=== PATIENT | male | born 1980 | race Caucasian/White ===

== ENCOUNTER 2017-05-03 02:40 | Emergency (ER) | payer OTHER, BC ==
[2017-05-03] MEDS ORDERED: PROPARACAINE 0.5% OPHTH DROPS 15 ML BTL LEFT EYE STA (02:54)
[2017-05-03 02:55] VITALS: BP 133/76; PULSE 65; RESP 18; TEMP 97
--- NOTE | 2017-05-03 03:07 | ED ---
General Adult HPI - General Chief complaint: Eye Problems Stated complaint: EYE INJURY Source: patient, RN notes reviewed Mode of arrival: ambulatory Limitations: no limitations - History of Present Illness Initial comments: This is a 36-year-old male who presents to the emergency department with chief complaint of left eye pain. Patient states that he was at work this afternoon and at approximately 3 PM a pipe broke and came back and hit him in the face. He states that since that time he has had pain in the left eye. He states that it has also felt itchy, has had a foreign body sensation and is blurry. He states that he is worried that he may have a piece of metal in his eye. Patient states that he is up-to-date with his tetanus vaccination at least within the last 5 years. Denies fever, chills, chest pain, shortness of breath, abdominal pain, nausea or vomiting, constipation or diarrhea, dysuria or hematuria, numbness or tingling. - Related Data Home Medications Medication Instructions Recorded Confirmed No Known Home Medications [No 05/03/17 05/03/17 Known Home Medications] Allergies Allergy/AdvReac Type Severity Reaction Status Date / Time No Known Allergies Allergy Verified 05/03/17 02:52 Review of Systems ROS Statement: Those systems with pertinent positive or pertinent negative responses have been documented in the HPI. ROS Other: All systems not noted in ROS Statement are negative. Past Medical History Past Medical History: No Reported History History of Any Multi-Drug Resistant Organisms: None Reported Past Surgical History: No Surgical Hx Reported Past Psychological History: No Psychological Hx Reported Smoking Status: Former smoker Past Alcohol Use History: Occasional Past Drug Use History: Marijuana General Exam - General Exam Comments Initial Comments: General: Awake and alert, well-developed; in no apparent distress. HEENT: Head atraumatic, normocephalic. Pupils are equal, round and reactive to light. Extraocular movements intact. On fluorescein staining, a corneal abrasion is apparent overlying the pupil of the left eye. Small foreign body noted at 7 o'clock in relation to pupil. Oropharynx moist without erythema or exudate. Neck: Supple. Normal ROM. Cardiovascular: Regular rate and rhythm. No murmurs, rubs or gallops. Chest symmetrical. Respiratory: Lungs clear to auscultation bilaterally. No wheezes, rales or rhonchi. Normal respiratory effort with no use of accessory muscles. Musculoskeletal: Normal ROM, no tenderness bilateral upper and lower extremities. Ambulating normally. Skin: [place], warm and dry without rashes or lesions. Neurological: Alert and oriented x3. CN II-XII grossly intact. Speech is fluent and answers are appropriate. No focal neuro deficits. Psychiatric: Normal mood and affect. No overt signs of depression or anxiety noted. Limitations: no limitations Course Vital Signs 05/03/17 02:49 Temperature 97 F L Pulse Rate 65 Respiratory 18 Rate Blood Pressure 133/76 O2 Sat by Pulse 99 Oximetry Medical Decision Making - Medical Decision Making This is a 36-year-old male who presents to the emergency department with chief complaint of left eye pain. In fluorescein staining a corneal abrasion was identified. I discussed this with Dr. Romero, who then evaluated the patient. He was able to identify a small piece of metal at approximately 7:00 in relation to the pupil. He was able to remove the piece of metal. Patient was left with a rust ring that was not removed because the tool was unclean.patient will be discharged home with recommendation to follow-up with ophthalmology today or tomorrow. He was provided with prescription for tobramycin drops. Patient is in agreement with plan and voices understanding. All questions were answered. Disposition Clinical Impression: Corneal foreign body, Corneal abrasion, Corneal rust ring of left eye Disposition: HOME SELF-CARE Condition: Good Instructions: Eye Foreign Body (ED), Corneal Abrasion (ED), Tobramycin (Into the eye) Additional Instructions: Please follow up with Dr. Rodas, ophthalmology today or tomorrow. Please take medications as prescribed. Please follow up with primary care provider within 1- 2 days. Return to emergency department if symptoms should worsen or any concerns arise. Referrals: None,Stated [Primary Care Provider] - 1-2 days Armani Rodas MD [STAFF PHYSICIAN] - 1-2 days Time of Disposition: 03:39
[2017-05-03] MEDS ORDERED: TOBRAMYCIN 0.3% OPHTH DROPS 5 ML BTL LEFT EYE STA (03:38)
== END 2017-05-03 03:45 | disposition home or self-care (01) ==
LOC: EC 02:40
DX: T15.02XA Foreign body in cornea, left eye, initial encounter (principal); Z87.891 Personal history of nicotine dependence; W22.8XXA Striking against or struck by other objects, initial encounter; Y93.89 Activity, other specified; Y99.0 Civilian activity done for income or pay; Y92.69 Other specified industrial and construction area as the place of occurrence of the external cause
CPT/HCPCS: 99283

== ENCOUNTER 2020-12-20 19:29 | Emergency (ER) | payer BC ==
[2020-12-20 19:48] VITALS: RESP 18
[2020-12-20 20:16] LABS: Basophils % (A) 1 %; Eosinophils # (A) 0.5 k/uL (0-0.7); Eosinophils % (A) 5 %; HCT 41.9 % (39.0-53.0); HGB 14.5 gm/dL (13.0-17.5); Lymphocytes % (A) 22 %; MCH 31.1 pg (25.0-35.0); MCHC 34.5 g/dL (31.0-37.0); MCV 90.1 fL (80.0-100.0); Monocytes # (A) 0.6 k/uL (0-1.0); Monocytes % (A) 6 %; Neutrophils # (A) 5.9 k/uL (1.3-7.7); Neutrophils % (A) 64 %; Platelet Count 263 k/uL (150-450); RBC 4.66 m/uL (4.30-5.90); RDW 13.6 % (11.5-15.5); WBC 9.1 k/uL (3.8-10.6)
[2020-12-20 20:25] LABS: ALT 27 U/L (4-49); AST 33 U/L (17-59); African American GFR (CKD) >90 (>60 ml/min/1.73 sqM); Albumin 4.5 g/dL (3.5-5.0); Alkaline Phosphatase 120 U/L (38-126); Anion Gap 9 mmol/L; Blood Urea Nitrogen 12 mg/dL (9-20); Calcium 9.3 mg/dL (8.4-10.2); Carbon Dioxide 26 mmol/L (22-30); Chloride 103 mmol/L (98-107); Glucose 98 mg/dL (74-99); Non-African American GFR(CKD) >90 (>60 ml/min/1.73 sqM); Potassium 3.8 mmol/L (3.5-5.1); Sodium 138 mmol/L (137-145); Total Bilirubin 0.6 mg/dL (0.2-1.3); Total Protein 6.8 g/dL (6.3-8.2)
[2020-12-20 20:30] LABS: Prothrombin Time 10.6 sec (9.0-12.0)
--- NOTE | 2020-12-20 20:59 | ED ---
Chest Pain HPI - General Chief Complaint: Chest Pain Stated Complaint: Chest Pain,L Arm numbnss Time Seen by Provider: 12/20/20 20:27 Source: patient Mode of arrival: wheelchair - History of Present Illness Initial Comments: 40-year-old male with no past medical history presents emergency room with reported chest pain. Patient states he has had left-sided chest pain which radi ates into his left arm. He has had several episodes over the past 5 years. He did follow up in 2016 and had a stress test performed which was negative. He has not followed with a primary care doctor or project associate since. States that over the past several months he has had increasing episodes of chest pain with shortness of breath. He had 2 episodes today while at work treat him concerned and came into the emergency room for evaluation. His symptoms started around 3 PM with the worse episode happening at 6 PM. He denies family history of sudden cardiac . No fevers, chills or cough. Denies any abdominal pain. No numbness, tingling or weakness in his extremities. No other alleviating, weight loss consultant modifying factors - Related Data Home Medications Medication Instructions Recorded Confirmed No Known Home Medications 05/03/17 12/20/20 Allergies Allergy/AdvReac Type Severity Reaction Status Date / Time No Known Allergies Allergy Verified 12/20/20 21:17 Review of Systems ROS Statement: Those systems with pertinent positive or pertinent negative responses have been documented in the HPI. ROS Other: All systems not noted in ROS Statement are negative. EKG Findings - EKG Comments: EKG Findings:: EKG demonstrates a sinus tachycardia with a ventricular rate of 57. IL interval 158. QRS 94. QTC of 395. No acute ST segment elevations. Inverted T-wave in lead 3. Past Medical History Past Medical History: No Reported History History of Any Multi-Drug Resistant Organisms: None Reported Past Surgical History: No Surgical Hx Reported Past Psychological History: No Psychological Hx Reported Smoking Status: Former smoker Past Alcohol Use History: Occasional Past Drug Use History: Marijuana General Exam General appearance: alert, in no apparent distress Head exam: Present: atraumatic, normocephalic, normal inspection Eye exam: Present: normal appearance, PERRL, EOMI. Absent: scleral icterus, conjunctival injection, periorbital swelling ENT exam: Present: normal exam, mucous membranes moist Neck exam: Present: normal inspection. Absent: tenderness, meningismus, lymphadenopathy Respiratory exam: Present: normal lung sounds bilaterally. Absent: respiratory distress, wheezes, rales, rhonchi, stridor Cardiovascular Exam: Present: regular rate, normal rhythm, normal heart sounds. Absent: systolic murmur, diastolic murmur, rubs, gallop, clicks GI/Abdominal exam: Present: soft, normal bowel sounds. Absent: distended, tenderness, guarding, rebound, rigid Extremities exam: Present: normal inspection, full ROM, normal capillary refill. Absent: tenderness, pedal edema, joint swelling, calf tenderness Back exam: Present: normal inspection Neurological exam: Present: alert, oriented X3, CN II-XII intact Psychiatric exam: Present: normal affect, normal mood Skin exam: Present: warm, dry, intact, normal color. Absent: rash Course Vital Signs 12/20/20 12/20/20 19:43 22:26 Temperature 98.1 F 97.7 F Pulse Rate 80 68 Respiratory 18 18 Rate Blood Pressure 143/100 145/98 O2 Sat by Pulse 98 98 Oximetry Chest Pain MDM - MDM Upon arrival patient was placed into room 4. A thorough history and physical e xam was performed. Laboratory studies are conducted and chest x-rays performed. Upon return of the results they're discuss the patient. Due to the duration of the patient's symptoms the past 5 years will be discharged home to follow up with primary care doctor in office. I did recommend for cardiac workup to include echo, Holter monitoring chest testing. Patient understood this. He has any new or worsening symptoms return to the emergency room. Patient was discharged home in stable condition Disposition Clinical Impression: Chest pain Disposition: HOME SELF-CARE Condition: Stable Instructions (If sedation given, give patient instructions): Chest Pain (ED) Additional Instructions: You need to follow up with your PCP in 2-4 days and have a full cardiac workup. Return to the ED for any new or worsening symptoms. Is patient prescribed a controlled substance at d/c from ED?: No Referrals: Nataly Chan DO [REFERRING] - 1-2 days Shelia Blount MD [REFERRING] - 1-2 days Oeby Herron MD [STAFF PHYSICIAN] - 1-2 days Time of Disposition: 22:06
--- NOTE | 2020-12-20 21:20 | XR ---
EXAMINATION TYPE: XR chest 2V DATE OF EXAM: 12/20/2020 COMPARISON: Chest radiograph 10/15/2015 HISTORY: Chest pain TECHNIQUE: Frontal and lateral views of the chest are obtained. FINDINGS: There is no focal air space opacity, pleural effusion, or pneumothorax seen. The cardiac silhouette size is within normal limits. The osseous structures are intact. IMPRESSION: No acute cardiopulmonary process.
[2020-12-20 22:28] VITALS: BP 145/98; PULSE 68; TEMP 97.7
== END 2020-12-20 22:26 | disposition home or self-care (01) ==
LOC: EC 19:29
DX: R07.89 Other chest pain (principal); F12.90 Cannabis use, unspecified, uncomplicated; Z87.891 Personal history of nicotine dependence
CPT/HCPCS: 36415; 71046; 80053; 84484; 85025; 85379; 85610; 85730; 93005; 99285

== ENCOUNTER 2021-12-12 12:53 | Emergency (ER) | payer BC ==
--- NOTE | 2021-12-12 13:21 | ED ---
Lower Extremity Injury HPI - General Stated Complaint: ankle injury Time Seen by Provider: 12/12/21 13:19 Source: patient, RN notes reviewed Mode of arrival: ambulatory Limitations: no limitations - History of Present Illness Initial Comments: This a 41-year-old male presents emergency Department chief complaint of left ankle pain. Patient states proximal 9 minutes prior arrival he rolled his ankle and stepped in hole. Patient states she has pain on lateral portion a prior ankle fracture no prior surgeries. No paresthesias no other injuries noted. - Related Data Previous Rx's Medication Instructions Recorded Ibuprofen [Motrin] 600 mg PO Q8HR PRN #20 tab 12/12/21 Allergies Allergy/AdvReac Type Severity Reaction Status Date / Time No Known Allergies Allergy Verified 12/12/21 13:21 Review of Systems ROS Statement: Those systems with pertinent positive or pertinent negative responses have been documented in the HPI. ROS Other: All systems not noted in ROS Statement are negative. Past Medical History Past Medical History: No Reported History History of Any Multi-Drug Resistant Organisms: None Reported Past Surgical History: No Surgical Hx Reported Past Psychological History: No Psychological Hx Reported Smoking Status: Former smoker Past Alcohol Use History: Occasional Past Drug Use History: Marijuana General Exam General appearance: alert, in no apparent distress Head exam: Present: atraumatic, normocephalic, normal inspection Eye exam: Present: normal appearance, PERRL, EOMI. Absent: scleral icterus, conjunctival injection, periorbital swelling Respiratory exam: Present: normal lung sounds bilaterally. Absent: respiratory distress, wheezes, rales, rhonchi, stridor Cardiovascular Exam: Present: regular rate, normal rhythm, normal heart sounds. Absent: systolic murmur, diastolic murmur, rubs, gallop, clicks Extremities exam: Present: other (Left ankle there is moderate swelling on lateral malar region, tenderness with palpation is no foot tenderness no proximal tib-fib tenderness pulses equal bilateral equal color equal warmth) Skin exam: Present: warm, dry, intact, normal color. Absent: rash Course Vital Signs 12/12/21 13:18 Temperature 98.1 F Pulse Rate 64 Respiratory 18 Rate Blood Pressure 118/75 O2 Sat by Pulse 100 Oximetry Medical Decision Making - Medical Decision Making X-ray is negative for acute fracture. Patient left ankle sprain will be put in a stirrup air cast on-call with orthopedics Disposition Clinical Impression: Left ankle sprain Disposition: HOME SELF-CARE Condition: Stable Instructions (If sedation given, give patient instructions): Ankle Sprain (ED) Additional Instructions: Please return to the Emergency Department if symptoms worsen or any other concerns. Prescriptions: Ibuprofen [Motrin] 600 mg PO Q8HR PRN #20 tab PRN Reason: Pain Is patient prescribed a controlled substance at d/c from ED?: No Referrals: None,Stated [Primary Care Provider] - 1-2 days Jimi Valera MD [Medical Doctor] - 1-2 days Time of Disposition: 13:58
[2021-12-12] MEDS ORDERED: ACET/COD 300 MG/30 MG STARTER PACK 6 TAB BTL PO STA (13:57)
--- NOTE | 2021-12-12 13:59 | XR ---
EXAMINATION TYPE: XR ankle complete LT DATE OF EXAM: 12/12/2021 CLINICAL HISTORY: Pain and swelling after injury. TECHNIQUE: Frontal, lateral and oblique images of the left ankle are obtained. COMPARISON: None. FINDINGS: Moderate soft tissue swelling over the lateral malleolus. There is no acute fracture/dislo cation evident in the left ankle. The ankle mortise appears within normal limits. IMPRESSION: There is no acute fracture or dislocation in the left ankle.
[2021-12-12 14:34] VITALS: BP 123/76; PULSE 62; RESP 16; TEMP 98.2
== END 2021-12-12 14:30 | disposition home or self-care (01) ==
LOC: EC 12:53
DX: S93.402A Sprain of unspecified ligament of left ankle, initial encounter (principal); Z87.891 Personal history of nicotine dependence; W18.42XA Slipping, tripping and stumbling without falling due to stepping into hole or opening, initial encounter
CPT/HCPCS: 73610; 99283; L4350

== ENCOUNTER → 2022-10-23 | Outpatient (CLI) | payer BC ==
[2022-10-23 19:50] LABS: Total Protein,CSF 66 mg/dL (12-60)
[2022-10-23 20:42] LABS: Appearance,CSF Clear; CSF Tube Number 4
[2022-10-23 20:43] LABS: Nucleated Cells, CSF 1 u/L (0-5); Red Blood Cell,CSF 1 u/L (0-10)
== END | disposition home or self-care (01) ==
LOC: LABWHC1 13:14
PROVIDERS: ATTEND Nurse Practitioner Acute Care
DX: R90.89 Other abnormal findings on diagnostic imaging of central nervous system (principal)
CPT/HCPCS: 36415; 82040; 82042; 82784; 83916; 84157; 89050